=== PATIENT | female | born 1985 | race Caucasian/White ===

== ENCOUNTER 2018-11-01 11:47 | Inpatient (IN) ==
[2018-11-01] MEDS ORDERED: Ringers Solution, Lactated 1,000 ML IVC SCH ×2 (12:15→19:36)
--- NOTE | 2018-11-01 13:38 | Anesthesia Evaluation PreOp ---
Date of Encounter: 11/01/18 Time of Encounter: 13:36 - Past History Planned Operation: Robotic Left total hip replacement Cardiac History: Other (ECHO 01/01/18 Impressions: LVEF 60-65%. Mild left ventricular diastolic dysfunction. Normal right ventricular structure and func tion. Mild bileaflet mitral valve prolapse. Mild-moderate mitral regurgitation. Mild tricuspid regurgitation. No pulmonary hypertension. 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 (anxiety, dural ectasia may make spinal anesthetic jenny llenging but not contraindicated, pt seen by dr Hitchcock preoperatively) Other Medical History: Other (Marfan's syndrome) Anesthesia History: No Prior Anesthetic Complications Alcohol Use: none Drug use: none Medications and Allergies Metoprolol XL (24 HR) Succ [Toprol XL] 25 mg PO DAILY 01/05/15 [History] lamoTRIgine [Lamictal] 250 mg PO HS 01/05/15 [History] Zolmitriptan [Zomig] 2.5 mg PO AD PRN 04/28/17 [History] ARIPiprazole [Abilify] 4 mg PO QPM 11/01/18 [History] Celecoxib [Celebrex] 400 mg PO DAILY 11/01/18 [History] Cholecalciferol (Vitamin D3) [Vitamin D] 5,000 unit PO DAILY 11/01/18 [History] Levonorgestrel [Mirena] 1 each IY ONCE 11/01/18 [History] Ondansetron HCl 8 mg PO Q8H PRN 11/01/18 [History] diazePAM [Valium] 2 mg PO TID PRN 11/01/18 [History] Allergy/AdvReac Type Severity Reaction Status Date / Time cefdinir [From Omnicef] Allergy Rash Verified 04/28/17 16:59 Sulfa (Sulfonamide Allergy Rash Verified 04/28/17 16:59 Antibiotics) - Meds/Allergy Pre-op Review Medications Reviewed: Yes Allergies Reviewed: Yes Beta Blockers on Current Med List: Yes If Beta Blockers taken, Date/Time (Last Dose taken): 8am today Anesthesia Results - Labs Laboratory Tests 10/26/18 10/26/18 10/31/18 11:52 11:52 13:25 WBC 14.2 H Hgb 14.2 Hct 42.4 Plt Count 459 H PT 11.9 INR 1.1 APTT 34.1 Sodium Potassium Chloride Carbon Dioxide BUN Creatinine Glucose Serum , Qual Negative 10/31/18 13:25 WBC Hgb Hct Plt Count PT INR APTT Sodium 139 Potassium 3.9 Chloride 103 Carbon Dioxide 28 BUN 12 Creatinine 0.96 Glucose 97 Serum , Qual - Imaging EKG: report reviewed (01/01/18 ECG Findings * Normal sinus rhythm.) Anesthesia Exam O2 Sat Height 1.68 m Weight 78.018 kg O2 Sat by Pulse Oximetry 95 Vital Signs Temp Pulse Resp BP Pulse Ox 98.4 F 110 18 137/89 95 11/01/18 12:04 11/01/18 12:04 11/01/18 12:04 11/01/18 12:04 11/01/18 12:04 Weight: 78kg NPO (# of Hours): >8 - HEENT Pupil (Motor): Pupils equal, EOMI Mallampati: III Teeth: Normal Oral Opening: Greater than 3 - [employer] 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
[2018-11-01] MEDS ORDERED: Acetaminophen IV 1,000 MG/100 ML INFUS..BTL IVPB ONE (13:39)
[2018-11-01] MEDS ORDERED: *HR* OxyCODONE ER (12 HR) 10 MG TABLET PO ONE (13:39)
[2018-11-01] MEDS ORDERED: Gabapentin 300 MG CAPSULE PO ONE (13:39)
[2018-11-01] MEDS ORDERED: Celecoxib 100 MG CAPSULE PO ONE (13:39)
[2018-11-01] MEDS ORDERED: Bupivacaine-MPF 0.25% 10 ML VIAL ONE (14:27)
[2018-11-01] MEDS ORDERED: Bupivacaine/EPI 1:200k 0.5%PF 10 ML VIAL ONE (14:29)
[2018-11-01] MEDS ORDERED: *HR* FentaNYL (PF) 100 MCG/2 ML VIAL ONE (14:34)
[2018-11-01] MEDS ORDERED: *HR* Midazolam HCl 2 MG/2 ML VIAL ONE ×2 (14:34→16:05)
[2018-11-01] MEDS ORDERED: Lidocaine -MPF 2% 2 ML VIAL ONE (14:34)
[2018-11-01] MEDS ORDERED: *HR* Propofol 200 MG/20 ML VIAL IVP ONE (14:34)
[2018-11-01] MEDS ORDERED: *HR* Succinylcholine 200 MG/10 ML VIAL IVP ONE ×2 (14:34→16:28)
[2018-11-01] MEDS ORDERED: Ethanol\\Acetic Acid\\Na Ace\\Ben 1,000 ML IRRIG.SOLN IR ONE (14:39)
--- NOTE | 2018-11-01 15:43 | History & Physical Report ---
Date of Encounter: 11/01/18 Time of Encounter: 15:42 24 Hour HP Update - Instructions Instructions: If the History and Physical is less than 30 days old and was completed prior to A.M. admission and or procedure and has NOT been updated on calendar day of procedure please complete this update prior to performing procedure. - Update Patient reports changes in Medical Condition: No Changes in examination, assessment, or condition: No Changes in Medication: No Preop tests/diagnostics Reviewed: Yes Surgery Remains Indicated: Yes Consent for Planned Operative Procedure(s) Verified: Yes - Pre-Operative Checklist Preoperative Checklist Indicated: No Prophylactic Antibiotic Ordered: Yes Is VTE Prophylaxis Indicated?: Yes
[2018-11-01] MEDS ORDERED: *HR* PHENYLEPHRINE 1,000 MCG/10 ML SYRINGE IVP ONE ×3 (16:23→17:35)
--- NOTE | 2018-11-01 16:58 | Anesthesia Procedures ---
Date of Encounter: 11/01/18 Time of Encounter: 15:54 Procedures: Anesthesia - Epidural/Spinal Patient examined: Yes Supplemental Oxygen Rate (L/min): 5 Sedation: Versed (mg): 4 Sedation: Fentanyl (mcg): 100 Site Prep: 0.5% Chlorhexidine/Alcohol Patient position: upright Local Anesthetic: Lidocaine 1% Amount of Local Anesthetic used: 3 Interspace Used: L3-L4 Blood: No CSF: Yes Paresthesia: No Spinal Needle Gauge: 25 Spinal Dose: 2.5ml 0.5% marcaine with epi
[2018-11-01] MEDS ORDERED: Propofol 500 MG/50 ML INFUS..BTL ONE (17:04)
--- NOTE | 2018-11-01 17:55 | Orthopedic Operative Note ---
Date of procedure: 11/01/18 Pre-op diagnosis: Left hip arthritis with protrusio Post-op diagnosis: same Procedure: Procedure: Left Total Hip Replacment robotic-assisted Estimated blood loss: 200 cc Hardware: Metal and polyethylene replacement. [place] DM Cup: 50 cup Femoral size 3 anteverted Anato stem Head:0 head with Mago Procedural Notes: Grade 4 arthritic changes femoral head acetabular socket with significant petrusio, procedure performed with robotic assistance. Operative leg 2 mm shorter than nonoperative as measured by preoperative CT scan. Operative procedure: The patient was brought to the operating room and placed on the operating room table. After general anesthesia was administered the patient was placed in the lateral decubitus position with the operative leg up. All pressure points were padded appropriately and the head was stabilized in the neutral position. The operative extremity was prepped and draped in the sterile surgical fashion patient received IV antibiotic prior to skin incision. 3 Steinmann pins were placed in the iliac crest 3 cm proximal to the anterior superior iliac spine this was for the robotic-assisted sensor. This was done through a small 2 cm incision. A standard posterior approach is made to the operative hip, the incision was made through the skin and subcutaneous tissue hemostasis was obtained with Bovie cautery. Using careful sharp dissection the fascia was rishi ntified and incised exposing the external rotators. The greater trochanter was marked, and length was measured at this time utilizing robotic assistance. The external rotators were released off the greater trochanter and tagged with #2 FiberWire suture. The capsule was T'd open and the hip was brought into internal rotation. Due to the protrusio the hip could not be dislocated, this required in situ femoral neck cut approximately 1.5 cm proximal to the lesser trochanter. The femoral head was then removed. Patient noted to have grade 4 arthritic changes femoral head. An anterior capsulotomy was performed for the anterior retractor. Soft tissues removed from the acetabulum. Patient noted to have grade 4 arthritic changes acetabulum. The acetabulum reference point was confirmed. The acetabulum was then mapped with robotic assistance. Based on the preoperative plan the acetabulum was reamed in one step with a 50 reamer. The 50 acetabulum was impacted with robotic assistance and 36 degrees of abduction and 20 degrees of anteversion. The hip was brought back in to internal rotation and prepared with the kick boxer followed by the canal finder followed by the reaming process to a size 12 broaching process in 20 degrees anteversion. It was broached up to the appropriate size 3 Trial reduction revealed leg lengths close to normal. The femoral implant was impacted in place in 20 degrees of anteversion. Trial reduction found the hip to be stable with 0 head and Mago. The trials were removed and the real implants were impacted in place. The hip was reduced, patient had robotic confirmed leg length of 6 mm longer than the contralateral side. The hip had excellent stability with forward flexion to 90 degrees adduction of 30 degrees and internal rotation of 60 degrees. The hip had no shuck. The hip sat with an antibacterial solution. It was irrigated out with 2 L of pulse irrigation. The Steinmann pins were removed. The deep tissue was irrigated and closed deep with #1 PDS suture superficially with 0 PDS suture and skin was closed with Dermabond and zip tie. The patient was placed in a sterile dressing and abduction pillow. The patient was extubated and transferred to the recovery room in stable condition. Anesthesia: spinal Surgeon: Jed Pinzon Was there an assistant surveyor present: No Estimated blood loss (cc): 200 Condition: stable Disposition: PACU
[2018-11-01] MEDS ORDERED: *HR* Enoxaparin 30 MG/0.3 ML SYRINGE SQ SCH (18:00)
[2018-11-01] MEDS ORDERED: *HR* HYDROmorphone (PF) 1 MG/ML SYRINGE IVP PRN (18:11)
[2018-11-01] MEDS ORDERED: Ketorolac 30 MG/ML VIAL IVP ONE (18:11)
[2018-11-01] MEDS ORDERED: Ondansetron 4 MG/2 ML VIAL IVP ONE (18:11)
[2018-11-01] MEDS ORDERED: *HR* OxyCODONE Immed Rel 5 MG TABLET PO PRN (18:11)
[2018-11-01] MEDS ORDERED: *HR* Promethazine 25 MG/ML VIAL IVP PRN (18:11)
[2018-11-01] MEDS ORDERED: *HR* HYDROmorphone 2 MG/ML SYRINGE ONE (18:14)
[2018-11-01 18:53] LABS: Hemoglobin 11.5 g/dL (11.5-15.4)
--- NOTE | 2018-11-01 19:06 | Anesthesia Evaluation Post Op ---
Date of Encounter: 11/01/18 Time of Encounter: 18:38 - Discharge PostOp Status: Transfer Patient to floor (Patient's vital signs have been reviewed. Patient is stable postoperatively and has adequately recovered from anesthesia. Patient is determined to have stable airway patency and respiratory function including respiratory rate and oxygen saturation. Patient has a stable heart rate, blood pressure and adequate hydration. Patients mental status is acceptable. Patients temperature is appropriate. Pain and nausea are adequately controlled.)
[2018-11-01] MEDS ORDERED: traMADol 50 MG TABLET PO PRN (19:36)
[2018-11-01] MEDS ORDERED: ZOLMITRIPTAN 2.5 MG PO PRN (19:36)
[2018-11-01] MEDS ORDERED: Temazepam 15 MG CAPSULE PO PRN (19:36)
[2018-11-01] MEDS ORDERED: MOM Conc 10 ML UD.LIQ PO PRN (19:36)
[2018-11-01] MEDS ORDERED: Sennosides 8.6 MG TABLET PO PRN (19:36)
[2018-11-01] MEDS ORDERED: HYDROcodone BIT/Homatropine 5 MG TABLET PO PRN (19:36)
[2018-11-01] MEDS ORDERED: Naloxone 0.4 MG/ML INJ IVP PRN (19:36)
[2018-11-01] MEDS: Ondansetron 4 MG/2 ML VIAL IVP PRN (19:53)
[2018-11-01] MEDS ORDERED: Clindamycin 900 MG/50 ML 900 MG/50 ML IV.SOLN IVPB SCH (20:00)
[2018-11-01] MEDS ORDERED: diazePAM 2 MG TABLET PO PRN (20:12)
[2018-11-01] MEDS: Ascorbic Acid 500 MG TABLET PO SCH (21:40)
[2018-11-01] MEDS: lamoTRIgine 100 MG TABLET PO SCH (21:40)
[2018-11-01] MEDS: ARIPiprazole 2 MG TABLET PO SCH (21:47)
[2018-11-01] MEDS: *HR* Promethazine 25 MG/ML VIAL IVP PRN (21:47)
--- NOTE | 2018-11-01 23:18 | Physician Discharge Referral ---
Home Health/Hosp Referral Info Transfer to: Home Health Attending Provider: Dr. Pinzon - Diagnosis (1) Status post total hip replacement, left Priority: Primary Status: Acute (2) Osteoarthritis of left hip Priority: Primary Status: Chronic (3) Mitral valve prolapse Priority: Secondary Status: Chronic (4) Marfan syndrome Priority: Secondary Status: Chronic (5) Bipolar I disorder with depression Priority: Secondary Status: Chronic - Respiratory Orders None Smoking Cessation: Smoking cessation has been advised. For more information, call the [place] Tobacco Quit Line at 1-668-KEOT-NOW. - Diet/Nutrition Diet/Nutrition Orders: Regular - Activity Activity Orders: Ambulate, Chair, Walker - Services Needed Following services are medically necessary services: Nursing, Home Health Aide, Physical Therapy, Occupational Therapy Home Care Orders: Opsite dressing, leave intact until first post-operative visit. If dressing becomes >50% saturated, contact office, remove dressing and place appropriate dressing in its place. Do not allow for dressing to get wet. Zipline/Roxana in place, plan to remove at post-operative day #14-16. Total Joint Precautions x 6 weeks Apply cold therapy wrap 3-6x/day for 20 minutes at a time. Encourage ambulation throughout the day Use Incentive spirometer 10x/hour. Elevate affected extremity above heart as tolerated. Brace: Wear hip abductor brace at night x 6 weeks. - Transfer Medications Home Medications: Metoprolol XL (24 HR) Succ [Toprol XL] 25 mg PO DAILY 01/05/15 [History] lamoTRIgine [Lamictal] 250 mg PO HS 01/05/15 [History] Zolmitriptan [Zomig] 2.5 mg PO AD PRN 04/28/17 [History] ARIPiprazole [Abilify] 4 mg PO QPM 11/01/18 [History] Aspirin Enteric Coated [Aspirin EC] 325 mg PO BID #20 tablet. 11/01/18 [Rx] Celecoxib [Celebrex] 400 mg PO DAILY 11/01/18 [History] Cholecalciferol (Vitamin D3) [Vitamin D] 5,000 unit PO DAILY 11/01/18 [History] Levonorgestrel [Mirena] 1 each IY ONCE 11/01/18 [History] Ondansetron HCl 8 mg PO Q8H PRN 11/01/18 [History] OxyCODONE Immed Rel [Roxicodone 5 MG] 5 mg PO Q6HR PRN 5 Days #20 tablet 11/01/18 [Rx] diazePAM [Valium] 2 mg PO TID PRN 11/01/18 [History] Allergies/Adverse Reactions: Allergy/AdvReac Type Severity Reaction Status Date / Time cefdinir [From Omnicef] Allergy Rash Verified 04/28/17 16:59 Sulfa (Sulfonamide Allergy Rash Verified 04/28/17 16:59 Antibiotics) Certification: Further, I certify that my clinical findings support that this patient is homebound (i.e. absences from home require considerable and taxing effort and are for medical reasons or mu-ism services or infrequently or short duration when for other reasons) because: Homebound Reason: Post-surgery restriction and or conditions limit ability to leave home Attestation: My signature below is to certify that this patient is under my care and that I, or nurse practitioner, or a physician preschool teacher assistant working with me, has a [id number] encounter with this patient.
[2018-11-01] MEDS: *HR* OxyCODONE Immed Rel 5 MG TABLET PO PRN (23:29)
[2018-11-02] MEDS: *HR* Enoxaparin 30 MG/0.3 ML SYRINGE SQ SCH ×2 (05:43→18:14)
[2018-11-02] MEDS: Ondansetron 4 MG/2 ML VIAL IVP PRN (08:02)
[2018-11-02] MEDS: *HR* Promethazine 25 MG/ML VIAL IVP PRN (08:59)
[2018-11-02 09:55] LABS: Basophils % 0.1 %; Eosinophils % 0.1 %; Hematocrit 35.5 % (35.3-44.9); Hemoglobin 11.4 g/dL (11.5-15.4); Immature Granulocytes % 0.6 % (0-4); Lymphocytes # 1.6 K/mcL (0.6-4.6); Lymphocytes % 10.2 %; Mean Corpuscular HGB Conc 32.1 g/dL (31.6-35.5); Mean Corpuscular Hemoglobin 29.4 pg (28.0-33.3); Mean Corpuscular Volume 91.5 fL (83.0-100.0); Mean Platelet Volume 9.4 fL (9.4-12.4); Monocytes # 0.9 K/mcL (0.0-1.3); Monocytes % 5.8 %; Neutrophils # 13.1 K/mcL (1.6-8.9); Platelet Count 337 K/mcL (140-400); Red Blood Count 3.88 M/mcL (3.82-4.97); Red Cell Distribution Width 12.6 % (11.5-14.5); Segmented Neutrophils % 83.2 %
[2018-11-02 10:14] LABS: BUN/Creatinine Ratio 14 (6-26); Blood Urea Nitrogen 11 mg/dL (6-20); Calcium 8.9 mg/dL (8.6-10.3); Carbon Dioxide 23 mEq/L (23-29); Chloride 101 mEq/L (98-107); Glucose 124 mg/dL (70-105); Osmolality,Calculated 285 (280-300); Potassium 3.5 mEq/L (3.5-5.1); Sodium 137 mEq/L (136-145); eGFR For Non-African Americans > 60 (> 60)
[2018-11-02] MEDS: Acetaminophen 325 MG TABLET PO PRN (10:31)
[2018-11-02] MEDS ORDERED: Acetaminophen/Butalbital/CaffeineTABLET PO PRN (12:44)
[2018-11-02] MEDS ORDERED: Ringers Solution, Lactated 1,000 ML IVC ONE (12:46)
--- NOTE | 2018-11-02 12:49 | Anesthesia Procedures ---
Date of Encounter: 11/02/18
--- NOTE | 2018-11-02 12:59 | Anesthesia Progress Note ---
Date of Encounter: 11/02/18 Time of Encounter: 12:49 Anesthesia Note - Note Note: 11/02/18 12:49 S: Called to bedside due to post dural puncture headache. Pt is POD#1 s.p L robotic THR under spinal anesthesia yesterday. Pt has hustory of marfan's syndrome and has a history of dural ectasia, spinal was placed without complication and anesthetic course was uneventful. Pt woke up with an occipital headache which radiates to the neck , worsening with upright position and is associated with nausea, vomitting and photophobia. She christianson remained afebrile, with stable vital signs. Of note patient shared with me that she has had a spontaneous dural leak and spinal headache in the past but she did not share this information with me prior to her surgery. Vital Signs/O2 Sat/Glucose, Most Current Temp Pulse Resp BP Pulse Ox 11/02/18 10:25 98.2 F 102 19 101/69 97 Laboratory Results - last 24 hr 11/01/18 11/02/18 11/02/18 18:34 09:41 09:41 WBC 15.8 H RBC 3.88 Hgb 11.5 D 11.4 L Hct 36.0 35.5 MCV 91.5 MCH 29.4 MCHC 32.1 RDW 12.6 Plt Count 337 MPV 9.4 Immature Gran % 0.6 Seg Neutrophils % 83.2 Lymphocytes % 10.2 Monocytes % 5.8 Eosinophils % 0.1 Basophils % 0.1 Neutrophils # 13.1 H Lymphocytes # 1.6 Monocytes # 0.9 Eosinophils # 0.0 Basophils # 0.0 Sodium 137 Potassium 3.5 Chloride 101 Carbon Dioxide 23 BUN 11 Creatinine 0.80 Est GFR ( Amer) > 60 Est GFR (Non-Af Amer) > 60 BUN/Creatinine Ratio 14 Glucose 124 H Calculated Osmolality 285 Calcium 8.9 A: Symptoms are consistent with post dural puncture headache P: Due to dural ectasia a blood patch is not recommended as she is at high risk of inadvertent dural puncture with 18g toughy which will make headache worse Will treat conservatively with IV fluid bolus, fioricet, oral caffeine, prn dilaudid and rest Instructed to call if symptoms worsen.
--- NOTE | 2018-11-02 13:14 | Orthopedics Progress Note ---
Date of Encounter: 11/02/18 Time of Encounter: 12:20 - Assessment and Plan (1) Status post total hip replacement, left Current Visit: Yes Status: Acute PCR - POD#1 left THR robotic 11/01/18 Patient seen at bedside, with c/o headache, neck pain, N/V, A&O x 3. Anesthesia provider, Dr. Magaña, evaluated patient and appreciate her recommendations. Adding fluids, oral caffeine, fiorecet, bedrest. Continue to monitor. Afebrile, vital signs stable. Dressings, c/d/i with no visible drainage. no calf tenderness to palpation. Neurovascularly intact b/l LE. Vitals and Labs reviewed H/H 11.4/35.5 stable, asymptomatic. WBC 15.8, she was elevated preop as well at 15.3 with no sick symptoms. Pain control: adequate Participated in PT this am. Will place on hold as changing to bedrest status right now due to spinal headache All questions and concerns addressed. Educated on use of incentive spirometer. Encouraged ambulation and proper hydration. Patient educated on post-operative restrictions and post-operative care. Assessment and plan: Continue with postoperative care Discharge plan: plan for home health when medically stable (2) Osteoarthritis of left hip Current Visit: Yes Status: Chronic Qualifiers: Osteoarthritis type: unspecified Qualified Code(s): M16.12 - Unilateral primary osteoarthritis, left hip (3) Mitral valve prolapse Current Visit: Yes Status: Chronic (4) Marfan syndrome Current Visit: Yes Status: Chronic (5) Bipolar I disorder with depression Current Visit: No Status: Chronic Subjective Principal diagnosis: POD#1 s/p left THR 11/01/18 Interval history: Patient states her left hip feels ok with tolerable pain and has been able to get up with therapy this morning to walk to bathroom. Her bigger concern right now is that she woke up this morning with a headache and neck pain with possibly some light sensitivity as well as nausea and vomiting. She denies any sound sensitivity, vision changes, N/T to extremities, dizziness or lightheadedness. The headache is better when laying flat. She did admit that she has had this happen before in 2012 when she was diagnosed with a spinal leak without known trauma but states her symptoms at that time were much worse than today. Patient admits she forgot to tell this information to anesthesia before having the nerve block performed yesterday. Objective Vital signs: Vital Signs Temp Pulse Resp BP Pulse Ox 11/02/18 10:25 98.2 F 102 19 101/69 97 11/02/18 07:42 98.4 F 103 14 103/70 95 11/02/18 03:39 98.7 F 93 17 97/65 97 11/01/18 23:15 97.6 F 96 16 115/78 100 11/01/18 20:11 97.5 F L 80 14 103/70 95 11/01/18 18:51 98.0 F 75 14 102/69 96 11/01/18 18:41 92 15 98/65 97 11/01/18 18:31 97.6 F 79 14 99/70 96 11/01/18 18:21 89 16 106/82 95 11/01/18 18:11 93 16 94/63 98 11/01/18 18:01 97.7 F 86 16 93/65 100 Intake and Output 11/01/18 11/02/18 11/02/18 23:59 07:59 15:59 Intake Total 900 / 1000 100 / 1000 Output Total 200 / 200 200 / 200 Balance -200 / -200 700 / 800 100 / 800 Intake: Oral 900 / 1000 100 / 1000 Output: Emesis 200 / 200 Estimated Blood Loss 200 / 200 Other: Meal Breakfast Percent of Meal Consumed 0% # Voids 1 Weight 78.1 kg Patient Weight 11/02/18 23:59 Weight 78.1 kg - Labs CBC & BMP: 11/02/18 09:41 11/02/18 09:41 Labs: Abnormal lab results WBC 15.8 K/mcL (4.3-11.1) H 11/02/18 09:41 Hgb 11.4 g/dL (11.5-15.4) L 11/02/18 09:41 13.1 K/mcL (1.6-8.9) H 11/02/18 09:41 Glucose 124 mg/dL (70-105) H 11/02/18 09:41 Consult Discharge Plan - Plan Referrals: Odalys Conti MD [Primary Care Provider] -
[2018-11-02] MEDS: OXYCODONE Oral CONC 10 MG/0.5 ML ORAL.SYG SL PRN ×2 (14:06→20:43)
[2018-11-02] MEDS: Ascorbic Acid 500 MG TABLET PO SCH ×2 (16:37→18:11)
[2018-11-02] MEDS: Multivit/Ca/Min/Fe/FA 1 TAB TABLET PO SCH (16:38)
--- NOTE | 2018-11-02 16:40 | Discharge Summary ---
Orders not resulted at time of discharge: Pending orders 11/01/18 18:05 Surgical Pathology [PTH] Routine 11/03/18 04:00 Basic Metabolic Panel DAILY Complete Blood Count [HEME] DAILY Date of Encounter: 11/04/18 Time of Encounter: 07:12 - Discharge Diagnosis (1) Status post total hip replacement, left Priority: Primary Status: Acute (2) Marfan syndrome Priority: Secondary Status: Chronic (3) Mitral valve prolapse Priority: Secondary Status: Chronic (4) Osteoarthritis of left hip Priority: Primary Status: Chronic Qualifiers: Osteoarthritis type: unspecified Qualified Code(s): M16.12 - Unilateral primary osteoarthritis, left hip (5) Bipolar I disorder with depression Priority: Secondary Status: Chronic (6) Spinal headache Priority: Primary Status: Acute - Hospital Course Hospital course: Ms. Vieira is a 33 year old female Patient's postoperative course, complicated with a spinal headache, otherwise uneventful. Received antibiotics and physical therapy. Discharge stable condition - Time Spent with Patient Total time spent providing and/or coordinating discharge services: - Discharge Medications Prescriptions: New Aspirin Enteric Coated [Aspirin EC] 325 mg PO BID #20 tablet. OxyCOJAQUELIN Immed Rel [Roxicodone 5 MG] 5 mg PO Q6HR PRN 5 Days #20 tablet PRN Reason: Pain Continued Metoprolol XL (24 HR) Succ [Toprol Xl] 25 mg PO DAILY lamoTRIgine [Lamictal] 250 mg PO HS Zolmitriptan [Zomig] 2.5 mg PO AD PRN PRN Reason: Migraine Headache Celecoxib [Celebrex] 400 mg PO DAILY Cholecalciferol (Vitamin D3) [Vitamin D3] 5,000 unit PO DAILY ARIPiprazole [Abilify] 4 mg PO QPM diazePAM [Valium] 2 mg PO TID PRN PRN Reason: Anxiety Levonorgestrel [Mirena] 1 each IY ONCE Ondansetron HCl 8 mg PO Q8H PRN PRN Reason: Nausea Home Medications: Metoprolol XL (24 HR) Succ [Toprol Xl] 25 mg PO DAILY 01/05/15 [History] lamoTRIgine [Lamictal] 250 mg PO HS 01/05/15 [History] Zolmitriptan [Zomig] 2.5 mg PO AD PRN 04/28/17 [History] ARIPiprazole [Abilify] 4 mg PO QPM 11/01/18 [History] Aspirin Enteric Coated [Aspirin EC] 325 mg PO BID #20 tablet.dr 11/01/18 [Rx] Celecoxib [Celebrex] 400 mg PO DAILY 11/01/18 [History] Cholecalciferol (Vitamin D3) [Vitamin D3] 5,000 unit PO DAILY 11/01/18 [History] Levonorgestrel [Mirena] 1 each IY ONCE 11/01/18 [History] Ondansetron HCl 8 mg PO Q8H PRN 11/01/18 [History] OxyCODONE Immed Rel [Roxicodone 5 MG] 5 mg PO Q6HR PRN 5 Days #20 tablet 11/01/18 [Rx] diazePAM [Valium] 2 mg PO TID PRN 11/01/18 [History] Allergies/Adverse Reactions: Allergy/AdvReac Type Severity Reaction Status Date / Time cefdinir [From Omnicef] Allergy Rash Verified 04/28/17 16:59 Sulfa (Sulfonamide Allergy Rash Verified 04/28/17 16:59 Antibiotics) Date of admission: 11/01/18 19:35 Primary care physician: Odalys Conti MD Consults: 11/01/18 19:36 Consult to Nurse Navigator [CONS] Routine Comment: ortho navigator Consult to Nutrition [CONS] Routine Comment: Consulting Provider: NUTRITION Reason for Dietary Consult: Other Other:: Proper nutrition to facilitate wound healing Consult to Occupational Therapy [CONS] Routine Comment: Evaluate, develop and implement POC Reason for Consult: total hip replacement Does patient have active BEDREST order?: No Is patient medically & hemodynamically stable?: Yes Consult to Physical Therapy [CONS] Routine Comment: Evaluate, develop and implement POC Reason for Consult: total hip replacement Does patient have active BEDREST order?: No Is patient medically & hemodynamically stable?: Yes Consult to Highway Engineer [CONS] Routine Reason for SW Consult: post op joint replacement RT Post Op Consult [CONS] Routine Labs on day of discharge: Labs from last 24 hours 11/02/18 11/02/18 11/01/18 09:41 09:41 18:34 WBC 15.8 H RBC 3.88 Hgb 11.4 L 11.5 D Hct 35.5 36.0 MCV 91.5 MCH 29.4 MCHC 32.1 RDW 12.6 Plt Count 337 MPV 9.4 Immature Gran % 0.6 Seg Neutrophils % 83.2 Lymphocytes % 10.2 Monocytes % 5.8 Eosinophils % 0.1 Basophils % 0.1 Neutrophils # 13.1 H Lymphocytes # 1.6 Monocytes # 0.9 Eosinophils # 0.0 Basophils # 0.0 Sodium 137 Potassium 3.5 Chloride 101 Carbon Dioxide 23 BUN 11 Creatinine 0.80 Est GFR ( Amer) > 60 Est GFR (Non-Af Amer) > 60 BUN/Creatinine Ratio 14 Glucose 124 H Calculated Osmolality 285 Calcium 8.9 - Impressions ITS Impressions Hip X-Ray 11/01/18 08:53 IMPRESSION: Total hip arthropasty without acute hardware complication. D/ / Tanvir Thapa MD / Tanvir Thapa MD Interpreting Provider: Tanvir Thapa MD - Patient Status Disposition: Home, Self-Care Condition: Good Functional capacity at discharge: uses cane/walker Overall status at discharge: patient is progressing back to baseline - Discharge Instructions Follow Up With: Odalys Conti MD [Primary Care Provider] -
[2018-11-02] MEDS: Metoprolol XL (24 HR) Succ 25 MG TAB.ER.24H PO SCH (18:14)
[2018-11-02] MEDS: ARIPiprazole 2 MG TABLET PO SCH (18:14)
[2018-11-02] MEDS: lamoTRIgine 100 MG TABLET PO SCH (20:46)
[2018-11-03] MEDS: *HR* Enoxaparin 30 MG/0.3 ML SYRINGE SQ SCH ×2 (04:49→16:48)
[2018-11-03] MEDS: OXYCODONE Oral CONC 10 MG/0.5 ML ORAL.SYG SL PRN (04:49)
--- NOTE | 2018-11-03 06:38 | Orthopedics Progress Note ---
Date of Encounter: 11/03/18 Time of Encounter: 06:37 - Assessment and Plan (1) Status post total hip replacement, left Current Visit: Yes Status: Acute (2) Marfan syndrome Current Visit: Yes Status: Chronic (3) Mitral valve prolapse Current Visit: Yes Status: Chronic (4) Osteoarthritis of left hip Current Visit: Yes Status: Chronic Qualifiers: Osteoarthritis type: unspecified Qualified Code(s): M16.12 - Unilateral primary osteoarthritis, left hip (5) Bipolar I disorder with depression Current Visit: No Status: Chronic Subjective Principal diagnosis: POD#1 s/p left THR 11/01/18 Interval history: Patient was seen this morning doing well without complaints. Afebrile vital signs stable. Operative extremity: Neurovascularly intact Dressing clean dry and intact Calves nontender Assessment and plan: Continue with postoperative care Discharged if cleared by PT Objective Vital signs: Vital Signs Temp Pulse Resp BP Pulse Ox 11/03/18 04:57 98.6 F 104 16 126/80 94 11/02/18 22:54 99.8 F H 108 16 109/71 96 11/02/18 20:50 97 11/02/18 19:42 98.8 F 94 17 117/80 97 11/02/18 16:32 99.3 F 105 15 109/71 99 11/02/18 10:25 98.2 F 102 19 101/69 97 11/02/18 07:42 98.4 F 103 14 103/70 95 Intake and Output 11/02/18 11/02/18 11/03/18 15:59 23:59 07:59 Intake Total 100 / 1240 240 / 1240 Output Total 500 / 500 Balance 100 / 1040 240 / 1040 -500 / -500 Intake: Oral 100 / 1240 240 / 1240 Output: Urine 500 / 500 Other: Meal Breakfast Dinner Percent of Meal Consumed 0% 5% # Voids 1 Weight 78.3 kg Patient Weight 11/03/18 23:59 Weight 78.3 kg - Labs CBC & BMP: 11/02/18 09:41 11/02/18 09:41 Labs: Abnormal lab results WBC 15.8 K/mcL (4.3-11.1) H 11/02/18 09:41 Hgb 11.4 g/dL (11.5-15.4) L 11/02/18 09:41 13.1 K/mcL (1.6-8.9) H 11/02/18 09:41 Glucose 124 mg/dL (70-105) H 11/02/18 09:41 Consult Discharge Plan - Plan Referrals: Odalys Conti MD [Primary Care Provider] -
[2018-11-03] MEDS: *HR* OxyCODONE Immed Rel 5 MG TABLET PO PRN (09:05)
[2018-11-03] MEDS: Celecoxib 200 MG CAPSULE PO SCH (09:05)
[2018-11-03] MEDS: Ascorbic Acid 500 MG TABLET PO SCH ×2 (09:06→16:49)
[2018-11-03] MEDS: Metoprolol XL (24 HR) Succ 25 MG TAB.ER.24H PO SCH (09:06)
[2018-11-03] MEDS: Multivit/Ca/Min/Fe/FA 1 TAB TABLET PO SCH (09:06)
[2018-11-03 14:12] LABS: Basophils % 0.3 %; Eosinophils # 0.2 K/mcL (0.0-0.6); Eosinophils % 1.7 %; Hematocrit 30.9 % (35.3-44.9); Hemoglobin 10.1 g/dL (11.5-15.4); Lymphocytes % 22.7 %; Mean Corpuscular HGB Conc 32.7 g/dL (31.6-35.5); Mean Corpuscular Hemoglobin 29.5 pg (28.0-33.3); Mean Corpuscular Volume 90.4 fL (83.0-100.0); Mean Platelet Volume 9.8 fL (9.4-12.4); Monocytes # 1.3 K/mcL (0.0-1.3); Monocytes % 10.2 %; Neutrophils # 8.5 K/mcL (1.6-8.9); Platelet Count 299 K/mcL (140-400); Red Blood Count 3.42 M/mcL (3.82-4.97); Red Cell Distribution Width 12.8 % (11.5-14.5); Segmented Neutrophils % 64.1 %
[2018-11-03 14:14] LABS: BUN/Creatinine Ratio 8 (6-26); Blood Urea Nitrogen 7 mg/dL (6-20); Calcium 8.7 mg/dL (8.6-10.3); Carbon Dioxide 28 mEq/L (23-29); Chloride 103 mEq/L (98-107); Glucose 104 mg/dL (70-105); Osmolality,Calculated 280 (280-300); Potassium 3.4 mEq/L (3.5-5.1); Sodium 136 mEq/L (136-145); eGFR For Non-African Americans > 60 (> 60)
[2018-11-03] MEDS: ARIPiprazole 2 MG TABLET PO SCH (16:49)
[2018-11-03] MEDS: Acetaminophen 325 MG TABLET PO PRN (16:52)
[2018-11-03] MEDS: lamoTRIgine 100 MG TABLET PO SCH (20:23)
[2018-11-04] MEDS: *HR* Enoxaparin 30 MG/0.3 ML SYRINGE SQ SCH (04:39)
--- NOTE | 2018-11-04 07:14 | Orthopedics Progress Note ---
Date of Encounter: 11/04/18 Time of Encounter: 07:13 - Assessment and Plan (1) Status post total hip replacement, left Current Visit: Yes Status: Acute (2) Marfan syndrome Current Visit: Yes Status: Chronic (3) Mitral valve prolapse Current Visit: Yes Status: Chronic (4) Osteoarthritis of left hip Current Visit: Yes Status: Chronic Qualifiers: Osteoarthritis type: unspecified Qualified Code(s): M16.12 - Unilateral primary osteoarthritis, left hip (5) Bipolar I disorder with depression Current Visit: No Status: Chronic (6) Spinal headache Current Visit: Yes Status: Acute Subjective Principal diagnosis: POD#1 s/p left THR 11/01/18 Interval history: Patient was seen this morning doing well without complaints. Afebrile vital signs stable. Operative extremity: Neurovascularly intact Dressing clean dry and intact Calves nontender Assessment and plan: Continue with postoperative care Discharged today Objective Vital signs: Vital Signs Temp Pulse Resp BP Pulse Ox 11/04/18 06:32 98.3 F 87 16 114/76 96 11/04/18 04:13 98.0 F 93 14 118/74 97 11/03/18 22:25 98.1 F 85 16 108/72 97 11/03/18 19:27 98.2 F 104 16 116/77 98 11/03/18 16:44 99.6 F 93 16 108/73 99 11/03/18 11:28 98.5 F 87 16 102/70 98 Intake and Output 11/03/18 11/03/18 11/04/18 15:59 23:59 07:59 Intake Total 220 / 470 250 / 470 0 / 0 Output Total 0 / 500 0 / 0 Balance 220 / -30 250 / -30 0 / 0 Intake: Oral 220 / 470 250 / 470 0 / 0 Output: Urine 0 / 500 0 / 0 Other: Meal Lunch Percent of Meal Consumed 50% # Voids 1 Weight 77.4 kg Patient Weight 11/04/18 23:59 Weight 77.4 kg - Labs CBC & BMP: 11/03/18 04:00 11/03/18 04:00 Labs: Abnormal lab results WBC 13.2 K/mcL (4.3-11.1) H 11/03/18 04:00 RBC 3.42 M/mcL (3.82-4.97) L 11/03/18 04:00 Hgb 10.1 g/dL (11.5-15.4) L 11/03/18 04:00 Hct 30.9 % (35.3-44.9) L 11/03/18 04:00 13.1 K/mcL (1.6-8.9) H 11/02/18 09:41 Potassium 3.4 mEq/L (3.5-5.1) L 11/03/18 04:00 Glucose 124 mg/dL (70-105) H 11/02/18 09:41 Consult Discharge Plan - Plan Referrals: Odalys Conti MD [Primary Care Provider] -
[2018-11-04] MEDS: Ondansetron 4 MG/2 ML VIAL IVP PRN (07:22)
[2018-11-04] MEDS: Celecoxib 200 MG CAPSULE PO SCH (10:04)
[2018-11-04] MEDS: Multivit/Ca/Min/Fe/FA 1 TAB TABLET PO SCH (10:05)
[2018-11-04] MEDS: Ascorbic Acid 500 MG TABLET PO SCH (10:05)
[2018-11-04] MEDS: Metoprolol XL (24 HR) Succ 25 MG TAB.ER.24H PO SCH (10:05)
[2018-11-04 11:05] VITALS: BP 118/73
== END 2018-11-04 13:26 | disposition home or self-care (01) | DRG 301 ==
LOC: SAMDAY 11:47 → 3NENU 19:35
PROVIDERS: ADMIT Orthopaedic Surgery; ATTEND Orthopaedic Surgery

== ENCOUNTER 2019-01-15 16:56 | Observation (INO) ==
[2019-01-15] MEDS ORDERED: *HR* HYDROcodone/Acet 5/325 mg TABLET PO PRN (17:26)
[2019-01-15] MEDS ORDERED: Ondansetron ODT 4 MG TAB.RAPDIS SL PRN (17:26)
[2019-01-15] MEDS ORDERED: Acetaminophen 325 MG TABLET PO PRN (17:26)
[2019-01-15] MEDS ORDERED: Naloxone 0.4 MG/ML INJ IVP PRN (17:26)
[2019-01-15] MEDS ORDERED: Ibuprofen 400 MG TABLET PO PRN (17:26)
[2019-01-15] MEDS ORDERED: ZOLMITRIPTAN 2.5 MG PO PRN (17:57)
[2019-01-15] MEDS ORDERED: Ondansetron ODT 4 MG TAB.RAPDIS PO PRN (17:57)
[2019-01-15] MEDS ORDERED: Levonorgestrel 52 MG IUD IY SCH (18:00)
[2019-01-15 18:14] LABS: Basophils % 0.2 %; Eosinophils # 0.1 K/mcL (0.0-0.6); Eosinophils % 0.9 %; Hematocrit 42.5 % (35.3-44.9); Hemoglobin 13.6 g/dL (11.5-15.4); Immature Granulocytes % 0.4 % (0-4); Lymphocytes # 2.8 K/mcL (0.6-4.6); Lymphocytes % 21.2 %; Mean Corpuscular Hemoglobin 27.4 pg (28.0-33.3); Mean Corpuscular Volume 85.5 fL (83.0-100.0); Mean Platelet Volume 9.9 fL (9.4-12.4); Monocytes # 0.8 K/mcL (0.0-1.3); Monocytes % 6.2 %; Neutrophils # 9.4 K/mcL (1.6-8.9); Platelet Count 488 K/mcL (140-400); Red Blood Count 4.97 M/mcL (3.82-4.97); Red Cell Distribution Width 13.9 % (11.5-14.5); Segmented Neutrophils % 71.1 %; White Blood Count 13.2 K/mcL (4.3-11.1)
[2019-01-15 18:32] LABS: BUN/Creatinine Ratio 14 (6-26); Blood Urea Nitrogen 13 mg/dL (6-20); C-Reactive Protein 35 mg/L (Less than 10); Calcium 10.2 mg/dL (8.6-10.3); Carbon Dioxide 26 mEq/L (23-29); Chloride 103 mEq/L (98-107); Glucose 97 mg/dL (70-105); Osmolality,Calculated 284 (280-300); Potassium 3.9 mEq/L (3.5-5.1); Sodium 137 mEq/L (136-145); eGFR For African Americans > 60 (> 60); eGFR For Non-African Americans > 60 (> 60)
[2019-01-15] MEDS ORDERED: SUMAtriptan succinate 50 MG TABLET PO PRN (18:41)
[2019-01-15] MEDS ORDERED: 0.9 % Sodium Chloride 1,000 ML IVC ONE (18:52)
[2019-01-15] MEDS: diazePAM 2 MG TABLET PO PRN (21:29)
[2019-01-15] MEDS: Piperacillin/Tazobactam 3.375 GM in 0.9 % Sodium Chloride Mini Bag 100 ML IVPB SCH (23:38)
[2019-01-16 04:11] LABS: Basophils % 0.3 %; Eosinophils # 0.1 K/mcL (0.0-0.6); Hematocrit 35.4 % (35.3-44.9); Immature Granulocytes % 0.3 % (0-4); Lymphocytes # 2.8 K/mcL (0.6-4.6); Mean Corpuscular HGB Conc 32.8 g/dL (31.6-35.5); Mean Corpuscular Hemoglobin 28.6 pg (28.0-33.3); Mean Corpuscular Volume 87.2 fL (83.0-100.0); Mean Platelet Volume 9.7 fL (9.4-12.4); Monocytes # 0.9 K/mcL (0.0-1.3); Monocytes % 7.3 %; Neutrophils # 8.2 K/mcL (1.6-8.9); Platelet Count 393 K/mcL (140-400); Red Blood Count 4.06 M/mcL (3.82-4.97); Red Cell Distribution Width 13.9 % (11.5-14.5); Segmented Neutrophils % 68.1 %
[2019-01-16 04:13] LABS: Hemoglobin 11.6 g/dL (11.5-15.4)
[2019-01-16 04:26] LABS: Magnesium 1.7 mg/dL (1.6-2.6); Phosphorous 4.1 mg/dL (2.7-4.5)
[2019-01-16] MEDS ORDERED: Lidocaine -MPF 1% 5 ML AMPUL INFILT ONE (07:29)
[2019-01-16] MEDS: Metoprolol XL (24 HR) Succ 25 MG TAB.ER.24H PO SCH (08:13)
[2019-01-16] MEDS: Cholecalciferol (D-3) 1,000 UNIT (25MCG) TABLET PO SCH (08:14)
[2019-01-16] MEDS: Piperacillin/Tazobactam 3.375 GM in 0.9 % Sodium Chloride Mini Bag 100 ML IVPB SCH ×3 (08:14→23:35)
[2019-01-16] MEDS: diazePAM 2 MG TABLET PO PRN (21:03)
[2019-01-17 05:15] LABS: Basophils % 0.3 %; Eosinophils # 0.3 K/mcL (0.0-0.6); Eosinophils % 3.6 %; Hematocrit 34.2 % (35.3-44.9); Hemoglobin 11.1 g/dL (11.5-15.4); Immature Granulocytes % 0.2 % (0-4); Lymphocytes # 1.5 K/mcL (0.6-4.6); Lymphocytes % 16.6 %; Mean Corpuscular HGB Conc 32.5 g/dL (31.6-35.5); Mean Corpuscular Volume 86.1 fL (83.0-100.0); Mean Platelet Volume 9.5 fL (9.4-12.4); Monocytes # 0.6 K/mcL (0.0-1.3); Neutrophils # 6.4 K/mcL (1.6-8.9); Platelet Count 319 K/mcL (140-400); Red Blood Count 3.97 M/mcL (3.82-4.97); Red Cell Distribution Width 13.9 % (11.5-14.5); Segmented Neutrophils % 72.3 %; White Blood Count 8.9 K/mcL (4.3-11.1)
[2019-01-17 05:41] LABS: BUN/Creatinine Ratio 13 (6-26); Blood Urea Nitrogen 11 mg/dL (6-20); Calcium 8.8 mg/dL (8.6-10.3); Carbon Dioxide 26 mEq/L (23-29); Chloride 104 mEq/L (98-107); Glucose 105 mg/dL (70-105); Magnesium 1.8 mg/dL (1.6-2.6); Osmolality,Calculated 288 (280-300); Potassium 3.6 mEq/L (3.5-5.1); Sodium 139 mEq/L (136-145); eGFR For African Americans > 60 (> 60); eGFR For Non-African Americans > 60 (> 60)
[2019-01-17] MEDS: Piperacillin/Tazobactam 3.375 GM in 0.9 % Sodium Chloride Mini Bag 100 ML IVPB SCH (08:31)
[2019-01-17] MEDS: Metoprolol XL (24 HR) Succ 25 MG TAB.ER.24H PO SCH (08:31)
[2019-01-17] MEDS: Cholecalciferol (D-3) 1,000 UNIT (25MCG) TABLET PO SCH (08:31)
[2019-01-17] MEDS ORDERED: Lactobacillus 1 EACH CAP.SPRINK PO SCH (10:15)
[2019-01-17] MEDS ORDERED: Aminoglycoside Consult 1 EACH MC ONE (11:59)
[2019-01-17 12:00] VITALS: BP 122/78
== END 2019-01-17 12:00 | disposition home health service (06) ==
LOC: 3NENU → SUATTDRO 17:25
PROVIDERS: ADMIT Orthopaedic Surgery; ATTEND Pharmacist

== ENCOUNTER 2019-01-25 13:05 | Observation (INO) ==
[2019-01-25] MEDS ORDERED: Morphine Sulfate Immed Rel 15 MG TABLET PO STA (14:15)
[2019-01-25] MEDS ORDERED: *HR* Heparin 5,000 UNIT/ML VIAL IVP PRN ×2 (14:55)
[2019-01-25] MEDS ORDERED: *HR* Heparin 5,000 UNIT/ML VIAL IVP ONE (14:55)
[2019-01-25 15:11] LABS: Hematocrit 37.5 % (35.3-44.9); Hemoglobin 12.1 g/dL (11.5-15.4); Mean Corpuscular HGB Conc 32.3 g/dL (31.6-35.5); Mean Corpuscular Hemoglobin 27.4 pg (28.0-33.3); Mean Corpuscular Volume 84.8 fL (83.0-100.0); Mean Platelet Volume 9.6 fL (9.4-12.4); Platelet Count 365 K/mcL (140-400); Red Blood Count 4.42 M/mcL (3.82-4.97); Red Cell Distribution Width 13.6 % (11.5-14.5); White Blood Count 8.7 K/mcL (4.3-11.1)
[2019-01-25 15:20] LABS: INR 1.2; Prothrombin Time 13.4 Seconds (9.4-12.1)
[2019-01-25] MEDS: Heparin 25,000 UNIT/250 ML D5W 25,000 UNIT/250 ML IV.SOLN IVC SCH (15:30)
[2019-01-25] MEDS ORDERED: Ondansetron 4 MG/2 ML VIAL IVP PRN (16:28)
[2019-01-25] MEDS ORDERED: Naloxone 0.4 MG/ML INJ IVP PRN (16:28)
[2019-01-25] MEDS ORDERED: diazePAM 2 MG TABLET PO PRN (17:24)
[2019-01-25] MEDS: Doxycycline 100 MG CAPSULE PO SCH (20:27)
[2019-01-25] MEDS: Acetaminophen 325 MG TABLET PO PRN (20:55)
[2019-01-26 03:59] LABS: Basophils # 0.1 K/mcL (0.0-0.2); Basophils % 0.4 %; Eosinophils # 0.3 K/mcL (0.0-0.6); Eosinophils % 2.4 %; Hematocrit 35.2 % (35.3-44.9); Hemoglobin 11.4 g/dL (11.5-15.4); Immature Granulocytes % 0.3 % (0-4); Lymphocytes # 4.4 K/mcL (0.6-4.6); Lymphocytes % 38.1 %; Mean Corpuscular HGB Conc 32.4 g/dL (31.6-35.5); Mean Corpuscular Hemoglobin 27.3 pg (28.0-33.3); Mean Corpuscular Volume 84.4 fL (83.0-100.0); Mean Platelet Volume 9.6 fL (9.4-12.4); Monocytes # 0.8 K/mcL (0.0-1.3); Neutrophils # 5.9 K/mcL (1.6-8.9); Platelet Count 337 K/mcL (140-400); Red Blood Count 4.17 M/mcL (3.82-4.97); Red Cell Distribution Width 13.7 % (11.5-14.5); Segmented Neutrophils % 51.8 %; White Blood Count 11.5 K/mcL (4.3-11.1)
[2019-01-26 04:18] LABS: BUN/Creatinine Ratio 15 (6-26); Blood Urea Nitrogen 11 mg/dL (6-20); Calcium 9.3 mg/dL (8.6-10.3); Carbon Dioxide 25 mEq/L (23-29); Chloride 104 mEq/L (98-107); Glucose 103 mg/dL (70-105); Osmolality,Calculated 286 (280-300); Potassium 3.6 mEq/L (3.5-5.1); Sodium 138 mEq/L (136-145); eGFR For African Americans > 60 (> 60); eGFR For Non-African Americans > 60 (> 60)
[2019-01-26] MEDS: Doxycycline 100 MG CAPSULE PO SCH ×2 (08:56→19:34)
[2019-01-26] MEDS: Cholecalciferol (D-3) 1,000 UNIT (25MCG) TABLET PO SCH (08:56)
[2019-01-26] MEDS: Metoprolol XL (24 HR) Succ 25 MG TAB.ER.24H PO SCH (08:56)
[2019-01-26] MEDS: Acetaminophen 325 MG TABLET PO PRN (13:45)
[2019-01-26] MEDS: Heparin 25,000 UNIT/250 ML D5W 25,000 UNIT/250 ML IV.SOLN IVC SCH (14:33)
[2019-01-26] MEDS: *HR* Rivaroxaban 15 MG TABLET PO SCH (19:01)
[2019-01-27 07:12] LABS: Hematocrit 35.8 % (35.3-44.9); Hemoglobin 11.7 g/dL (11.5-15.4); Mean Corpuscular HGB Conc 32.7 g/dL (31.6-35.5); Mean Corpuscular Hemoglobin 28.2 pg (28.0-33.3); Mean Corpuscular Volume 86.3 fL (83.0-100.0); Mean Platelet Volume 9.7 fL (9.4-12.4); Platelet Count 367 K/mcL (140-400); Red Blood Count 4.15 M/mcL (3.82-4.97); Red Cell Distribution Width 13.6 % (11.5-14.5); White Blood Count 7.5 K/mcL (4.3-11.1)
[2019-01-27] MEDS: Metoprolol XL (24 HR) Succ 25 MG TAB.ER.24H PO SCH (09:39)
[2019-01-27] MEDS: Doxycycline 100 MG CAPSULE PO SCH (09:39)
[2019-01-27] MEDS: Cholecalciferol (D-3) 1,000 UNIT (25MCG) TABLET PO SCH (09:39)
[2019-01-27] MEDS: *HR* Rivaroxaban 15 MG TABLET PO SCH (09:39)
[2019-01-27 10:56] VITALS: BP 125/85
== END 2019-01-27 16:07 | disposition home or self-care (01) ==
LOC: 3NENU 13:05 → EMEROOARM 13:05 → SUATTDRO 15:49 → 3NENU 15:50
PROVIDERS: ADMIT Internal Medicine Nephrology; ATTEND Internal Medicine

== ENCOUNTER 2021-12-16 15:19 | Inpatient (IN) ==
[2021-12-16 15:56] LABS: Bilirubin,Urine Negative (Negative); Blood,Urine Small (Negative); Clarity,Urine Clear (Clear); Color,Urine Yellow (Yellow); Glucose,Urine (UA) Normal (Normal); Hyaline Casts,Urine Few per lpf (None Seen); Ketones,Urine Trace mg/dL (Negative); Leukocyte Esterase,Urine Trace (Negative); Mucus,Urine Few per lpf (None-Few); Nitrite,Urine Negative (Negative); PH,Urine 5.5 pH Units (5.0-8.0); Protein,Urine Trace mg/dL (Neg-Trace); Specific Gravity,Urine > 1.030 (1.010-1.025); Squamous Epithelial Cell,Urine Few per hpf (None-Few); Urobilinogen,Urine Normal (Normal); WBC,Urine 0-3 per hpf (0-3)
[2021-12-16 16:08] LABS: Basophils # 0.1 K/mcL (0.0-0.2); Basophils % 0.5 %; Eosinophils # 0.2 K/mcL (0.0-0.6); Eosinophils % 1.5 %; Hematocrit 43.6 % (35.3-44.9); Hemoglobin 14.4 g/dL (11.5-15.4); Immature Granulocytes % 0.3 % (0-4); Lymphocytes # 3.8 K/mcL (0.6-4.6); Lymphocytes % 30.2 %; Mean Corpuscular Hemoglobin 30.1 pg (28.0-33.3); Monocytes # 0.8 K/mcL (0.0-1.3); Monocytes % 6.1 %; Neutrophils # 7.8 K/mcL (1.6-8.9); Platelet Count 394 K/mcL (140-400); Red Blood Count 4.79 M/mcL (3.82-4.97); Red Cell Distribution Width 13.1 % (11.5-14.5); Segmented Neutrophils % 61.4 %; White Blood Count 12.7 K/mcL (4.3-11.1)
[2021-12-16 16:09] LABS: Amphetamine Screen,Urine Negative ng/mL (Cutoff=1000); Barbiturate Screen,Urine Negative ng/mL (Cutoff=200); Benzodiazepines Screen,Urine Positive ng/mL (Cutoff=200); Cannabinoid Screen,Urine Negative ng/mL (Cutoff = 50); Cocaine Screen,Urine Negative ng/mL (Cutoff= 300); Opiate Screen,Urine Negative ng/mL (Cutoff=300); Phencyclidine Screen,Urine Negative ng/mL (Cutoff=25)
[2021-12-16 16:39] LABS: Acetaminophen < 10 mcg/mL (10-20); BUN/Creatinine Ratio 13 (6-26); Blood Urea Nitrogen 12 mg/dL (6-20); Calcium 9.3 mg/dL (8.6-10.3); Carbon Dioxide 23 mEq/L (23-29); Chloride 108 mEq/L (98-107); Ethanol < 10 mg/dL (Less than 10); Glucose 110 mg/dL (70-105); Osmolality,Calculated 288 (280-300); Potassium 3.7 mEq/L (3.5-5.1); Salicylate < 2.5 mg/dL (15.0-30.0); Sodium 139 mEq/L (136-145); eGFR For African Americans > 60 (> 60); eGFR For Non-African Americans > 60 (> 60)
[2021-12-16] MEDS ORDERED: ALPRAZolam 1 MG TABLET PO PRN (17:54)
[2021-12-16] MEDS ORDERED: traZODone 50 MG TABLET PO PRN (17:56)
[2021-12-16] MEDS ORDERED: Acetaminophen 325 MG TABLET PO PRN (17:56)
[2021-12-16] MEDS ORDERED: *HR* LORazepam 1 MG TABLET PO PRN (17:56)
[2021-12-16] MEDS ORDERED: hydrOXYzine pamoate 25 MG CAPSULE PO PRN (17:56)
[2021-12-16] MEDS ORDERED: haloperidoL 5 MG TABLET PO PRN (17:56)
[2021-12-16] MEDS ORDERED: *HR* LORazepam 2 MG/ML VIAL IM PRN (17:56)
[2021-12-16] MEDS ORDERED: Haloperidol Lactate 5 MG/ML VIAL IM PRN (17:56)
[2021-12-16 18:28] LABS: Influenza A PCR Negative (Negative); Influenza B PCR Negative (Negative); Resp. Syncytial Virus PCR Negative (Negative)
[2021-12-16 18:35] LABS: SARS-CoV-2 by PCR (In House) Negative (Negative)
[2021-12-16] MEDS: ALPRAZolam 1 MG TABLET PO SCH (20:49)
[2021-12-16] MEDS: QUEtiapine Fumarate 25 MG TABLET PO PRN (20:49)
[2021-12-16] MEDS: Ibuprofen 400 MG TABLET PO PRN (20:49)
[2021-12-17] MEDS: Metoprolol XL (24 HR) Succ 25 MG TAB.ER.24H PO SCH (07:57)
[2021-12-17] MEDS: ALPRAZolam 1 MG TABLET PO SCH (07:58)
[2021-12-17] MEDS ORDERED: OXcarbazepine 150 MG TABLET PO SCH (09:00)
[2021-12-17 09:47] LABS: Carbamazepine (Tegretol) < 1 mcg/mL (4-12); Chol/HDL Ratio 3.7 (0-4.9); Cholesterol 137 mg/dL (< 200); HDL Cholesterol 37 mg/dL (40-59); LDL Cholesterol,Calculated 56 mg/dL (< 100); Triglycerides 220 mg/dL (< 150)
[2021-12-17 10:13] LABS: Estimated Average Glucose 108 mg/dl; Hemoglobin A1C 5.4 %
[2021-12-17] MEDS ORDERED: MOM Conc 10 ML UD.LIQ PO PRN (10:28)
[2021-12-17] MEDS ORDERED: Mag Hydrox/Al Hydrox/Simeth 30 ML UDC PO PRN (10:28)
[2021-12-17] MEDS: CarBAMazepine XR (12 hr) 100 MG TAB PO SCH ×3 (10:34→21:14)
[2021-12-17 11:24] LABS: Bacteria,Urine Few per hpf (None-Few); Bilirubin,Urine Negative (Negative); Blood,Urine Small (Negative); Clarity,Urine Clear (Clear); Color,Urine Light-Yellow (Yellow); Glucose,Urine (UA) Normal (Normal); Ketones,Urine Negative (Negative); Leukocyte Esterase,Urine Negative (Negative); Mucus,Urine Few per lpf (None-Few); Nitrite,Urine Negative (Negative); PH,Urine 5.5 pH Units (5.0-8.0); Protein,Urine Negative (Neg-Trace); RBC,Urine 0-3 per hpf (0-3); Squamous Epithelial Cell,Urine Few per hpf (None-Few); Urobilinogen,Urine Normal (Normal)
[2021-12-17] MEDS: QUEtiapine Fumarate 25 MG TABLET PO PRN (21:15)
[2021-12-18] MEDS: CarBAMazepine XR (12 hr) 100 MG TAB PO SCH ×3 (08:58→21:14)
[2021-12-18] MEDS: Metoprolol XL (24 HR) Succ 25 MG TAB.ER.24H PO SCH (08:58)
[2021-12-18] MEDS: Cholecalciferol (D-3) 1,000 UNIT (25MCG) TABLET PO SCH (08:58)
[2021-12-18] MEDS: ALPRAZolam 1 MG TABLET PO PRN (19:19)
[2021-12-18] MEDS ORDERED: ARIPiprazole 2 MG TABLET PO SCH (21:00)
[2021-12-18] MEDS: QUEtiapine Fumarate 25 MG TABLET PO PRN (21:14)
[2021-12-19] MEDS: CarBAMazepine XR (12 hr) 100 MG TAB PO SCH ×3 (08:50→21:18)
[2021-12-19] MEDS: Cholecalciferol (D-3) 1,000 UNIT (25MCG) TABLET PO SCH (08:50)
[2021-12-19] MEDS: Metoprolol XL (24 HR) Succ 25 MG TAB.ER.24H PO SCH (08:50)
[2021-12-19] MEDS ORDERED: Fluconazole 150 MG TABLET PO PRN (11:12)
[2021-12-19] MEDS: Doxycycline 100 MG CAPSULE PO SCH ×2 (12:28→21:17)
[2021-12-19] MEDS ORDERED: ARIPiprazole 5 MG TABLET PO SCH (21:00)
[2021-12-19] MEDS: QUEtiapine Fumarate 25 MG TABLET PO PRN (21:18)
[2021-12-20] MEDS: Metoprolol XL (24 HR) Succ 25 MG TAB.ER.24H PO SCH (08:09)
[2021-12-20] MEDS: Doxycycline 100 MG CAPSULE PO SCH ×2 (08:09→21:09)
[2021-12-20] MEDS: CarBAMazepine XR (12 hr) 100 MG TAB PO SCH (08:09)
[2021-12-20] MEDS: Cholecalciferol (D-3) 1,000 UNIT (25MCG) TABLET PO SCH (08:10)
[2021-12-20] MEDS ORDERED: QUEtiapine Fumarate 100 MG TABLET PO SCH (21:00)
[2021-12-21] MEDS: Doxycycline 100 MG CAPSULE PO SCH ×2 (08:48→21:49)
[2021-12-21] MEDS: Cholecalciferol (D-3) 1,000 UNIT (25MCG) TABLET PO SCH (08:48)
[2021-12-21] MEDS: Metoprolol XL (24 HR) Succ 25 MG TAB.ER.24H PO SCH (08:48)
[2021-12-21] MEDS: Ibuprofen 400 MG TABLET PO PRN (11:45)
[2021-12-21] MEDS: ALPRAZolam 1 MG TABLET PO PRN (17:39)
[2021-12-21] MEDS ORDERED: QUEtiapine Fumarate 100 MG TABLET PO SCH (21:00)
[2021-12-22 09:09] VITALS: BP 117/83; PULSE 104; TEMP 98.6; O2SAT 98
[2021-12-22] MEDS: Metoprolol XL (24 HR) Succ 25 MG TAB.ER.24H PO SCH (10:00)
[2021-12-22] MEDS: Cholecalciferol (D-3) 1,000 UNIT (25MCG) TABLET PO SCH (10:00)
[2021-12-22] MEDS: Doxycycline 100 MG CAPSULE PO SCH (10:00)
[2021-12-23] MEDS ORDERED: *HR* Metformin 500 MG TABLET PO SCH (08:00)
== END 2021-12-22 16:30 | disposition home or self-care (01) | DRG 885 ==
LOC: EMEROOARM 15:19 → 1ANU 18:52 → SUATTDRO 18:52 → 1ANU 19:57
PROVIDERS: ADMIT Psychiatry & Neurology Psychiatry; ATTEND Psychiatry & Neurology Forensic Psychiatry